=== PATIENT | male | born 1960 | race Hispanic/Latino ===

== ENCOUNTER 2017-11-25 07:34 | Emergency (ER) | payer BC, OTHER ==
[2017-11-25] MEDS ORDERED: MORPHINE SULFATE 2 MG/ML 1ML SYG ONE (08:04)
[2017-11-25] MEDS ORDERED: TETANUS/DIPHTHERIA TOXOID [ADULT] 0.5 ML VIAL IM ONE (08:04)
[2017-11-25] MEDS ORDERED: LIDOCAINE 1%-EPI 1:100,000 20 ML VIAL IJ ONE (08:10)
[2017-11-25] MEDS ORDERED: ONDANSETRON HCL 4 MG/2 ML VIAL ONE (10:23)
[2017-11-25] MEDS ORDERED: LIDOCAINE HCL 2% 20ML ONE (10:23)
[2017-11-25] MEDS ORDERED: HYDROMORPHONE 1 MG/1 ML AMP ONE (10:24)
[2017-11-25] MEDS ORDERED: CEPHALEXIN 500 MG CAPSULE ONE (12:01)
[2017-11-25] MEDS ORDERED: INSULIN HUMULIN R 100 UNIT/ML 3ML ONE (12:14)
== END 2017-11-25 12:53 | disposition home or self-care (01) ==
LOC: EDH 07:34
DX: S02.81XA Fracture of other specified skull and facial bones, right side, initial encounter for closed fracture (principal); S01.411A Laceration without foreign body of right cheek and temporomandibular area, initial encounter; S31.31XA Laceration without foreign body of scrotum and testes, initial encounter; S40.812A Abrasion of left upper arm, initial encounter; S40.811A Abrasion of right upper arm, initial encounter; S80.812A Abrasion, left lower leg, initial encounter; S80.811A Abrasion, right lower leg, initial encounter; S30.810A Abrasion of lower back and pelvis, initial encounter; E11.9 Type 2 diabetes mellitus without complications; I10 Essential (primary) hypertension; V19.9XXA Pedal cyclist (driver) (passenger) injured in unspecified traffic accident, initial encounter; Y93.55 Activity, bike riding; Y92.89 Other specified places as the place of occurrence of the external cause; Y99.8 Other external cause status
CPT/HCPCS: 12042; 12051; 70450; 70486; 72125; 72192; 76870; 90471; 90714; 99285; J1170; J1815; J2405; J3490 ×2

== ENCOUNTER → 2023-04-07 | Outpatient (CLI) | payer BC ==
[2023-04-07 12:36] LABS: T4 (THYROXINE) 6.1 ug/dL (4.7-13.3); THYROID STIMULATING HORMONE 0.86 uIU/mL (0.36-3.74)
== END | disposition home or self-care (01) ==
LOC: LAB 11:05
PROVIDERS: ATTEND Internal Medicine Cardiovascular Disease
DX: R00.2 Palpitations (principal); R94.31 Abnormal electrocardiogram [ECG] [EKG]
CPT/HCPCS: 36415; 84436; 84443; 84479